=== PATIENT | male | born 2000 | race Asian ===

== ENCOUNTER 2019-05-01 20:07 | Emergency (ER) | payer OTHER ==
[~2019-05-01] VITALS: Ht 185.4 cm; Wt 86.2 kg
[2019-05-01 20:23] VITALS: BP 126/63
--- NOTE | 2019-05-01 21:25 | NUR ---
PT WHEELCHAIRED TO ER BED 07
--- NOTE | 2019-05-01 21:30 | NUR ---
PT C/O RT ANKLE PAIN S/P FALLING OFF CURB AND "ROLLING" ANKLE. PT ABLE TO APPLY PRESSURE TO ANKLE BUT UNABLE TO AMBULATE ALONE, GERARDO TO BED VIA WHEELCHAIR. 4/10 ACHING PAIN AFTER TAKING ADVIL AT 1940. +CMS. +SWELLING, MINOR BRUISING NOTED TO ANKLE. PT SITTING IN BED IN COMFORTABLE POSITION, ON LAPTOP. FRIEND AT BEDSIDE. VSS. MEDHX: DENIES ALLERGIES: DENIES
--- NOTE | 2019-05-01 21:42 | NUR ---
X-Ray at bedside.
--- NOTE | 2019-05-01 22:22 | NUR ---
PTS RIGHT ANKLE WAS WRAPPED IN A MALIK BANDAGE AND PT WAS GIVEN CRUTCHES. PTS PMSC WNL AND PT SHOWED GOOD USE OF CRUTCHES.
[2019-05-01 22:23] VITALS: BP 126/63
--- NOTE | 2019-05-01 22:24 | NUR ---
Patient discharged with v/s stable. Written and verbal after care instructions given and explained. Patient alert, oriented and verbalized understanding of instructions. Ambulatory with CRUTCHES to home. All questions addressed prior to discharge. ID band removed. Patient advised to follow up with PMD. Rx of MOTRIN 800MG given. Patient educated on indication of medication including possible reaction and side effects. Opportunity to ask questions provided and answered. PT EDUCATED ON CRUTCH USE. ACCOMPANIED BY FRIEND
== END 2019-05-01 22:24 | disposition home or self-care (01) ==
LOC: MED 20:07
DX: S93.401A Sprain of unspecified ligament of right ankle, initial encounter (principal); R03.0 Elevated blood-pressure reading, without diagnosis of hypertension; X58.XXXA Exposure to other specified factors, initial encounter; Y93.01 Activity, walking, marching and hiking; Y92.488 Other paved roadways as the place of occurrence of the external cause; Y99.8 Other external cause status
CPT/HCPCS: 73610; 99283; Q0092